=== PATIENT | female | born 1985 | race American Indian/Alaskan Native ===

== ENCOUNTER 2017-07-15 20:02 | Emergency (ER) | payer SELFPAY ==
[2017-07-15 21:47] LABS: Basophils % (Auto) 0.6 % (0.0-1.8); Eosinophils # (Auto) 0.3 K/mm3 (0.0-0.4); Eosinophils % (Auto) 3.7 % (0.0-4.3); Hematocrit 45.1 % (30.3-42.9); Hemoglobin 14.7 gm/dl (10.1-14.3); Lymphocytes # (Auto) 2.7 K/mm3 (1.2-5.4); Lymphocytes % (Auto) 36.6 % (13.4-35.0); Mean Corpuscular HGB Conc 33 % (30-34); Mean Corpuscular Hemoglobin 35 pg (28-32); Mean Corpuscular Volume 106 fl (79-97); Monocytes # (Auto) 0.6 K/mm3 (0.0-0.8); Platelet Count 225 K/mm3 (140-440); Red Blood Count 4.25 M/mm3 (3.65-5.03); Red Cell Distribution Width 11.9 % (13.2-15.2)
[2017-07-15] MEDS ORDERED: NACL 0.9% 1000 ML 1,000 ML IV ONE (22:24)
[2017-07-15 22:36] LABS: Bilirubin,Urine NEG (Negative); Blood,Urine LG (Negative); Color,Urine Red (Yellow); Mucus,Urine 2+ /HPF; Nitrite,Urine NEG (Negative); Urobilinogen,Urine < 2.0 mg/dL (<2.0)
--- NOTE | 2017-07-15 22:36 | Emergency Department Report ---
HPI - General Chief Complaint: Vaginal Bleeding Time Seen by Provider: 07/15/17 22:24 - HPI HPI: Room 19 The patient is a 31-year-old female presented with a chief complaint of vaginal bleeding. The patient states her cycle came on in his usual time approximately 2 days ago however is been heavier than normal. Patient states she didn't using tampons and maxipads and has to change them at least hourly. The patient says she's gone through approximately 40 tampons and maxipads in the past 2 days. Patient states she had episode of dizziness 4 days ago and has had pelvic cramping and a headache. Location: Genitourinary system Duration: 2 days Quality:. Cramping Severity: Moderate Modifying factors: [see above] Context: [see above] Mode of transportation: Unknown ED Past Medical Hx - Past Medical History Previous Medical History?: Yes Additional medical history: ANEMIA - Surgical History Past Surgical History?: No - Family History Family history: no significant - Social History Smoking Status: Former Smoker (none 1 year) Substance Use Type: None (denies illicit drug use) - Medications Home Medications: Home Medications Medication Instructions Recorded Confirmed Last Taken Type HYDROcodone/APAP 5-325 [[place] 1 - 2 each PO Q6HR PRN #14 tablet 02/24/16 Unknown Rx 5/325] Ibuprofen [Motrin 800 MG tab] 800 mg PO Q8HR PRN #20 tablet 02/24/16 Unknown Rx Sulfamethoxazole/Trimethoprim 1 each PO BID #20 tablet 02/24/16 Unknown Rx [Bactrim DS TAB] medroxyPROGESTERone ACETATE 10 mg PO QDAY #10 tablet 07/15/17 Unknown Rx [Provera] Ibuprofen [Motrin 800 MG tab] 800 mg PO Q8HR PRN #20 tablet 07/16/17 Unknown Rx traMADol [Ultram] 50 mg PO Q6HR PRN #14 tablet 07/16/17 Unknown Rx ED Review of Systems ROS: Stated complaint: VAG BLEED Other details as noted in HPI Gastrointestinal: abdominal pain Genitourinary: abnormal menses Neurological: headache Physical Exam - Physical Exam Vital Signs: Vital Signs 07/15/17 20:29 Temperature 97.7 F Pulse Rate 104 H Respiratory 16 Rate Blood Pressure 161/73 O2 Sat by Pulse 100 Oximetry Physical Exam: GENERAL: The patient is well-developed well-nourished female lying on stretcher not appearing to be in acute distress. [] HEENT: Normocephalic. Atraumatic. Extraocular motions are intact. Patient has moist mucous membranes. NECK: Supple. Trachea midline CHEST/LUNGS: Clear to auscultation. There is no respiratory distress noted. HEART/CARDIOVASCULAR: Regular. There is no tachycardia. There is no gallop rub or murmur. ABDOMEN: Abdomen is soft, nontender. Patient has normal bowel sounds. There is no abdominal distention. SKIN: There is no rash. There is no edema. There is no diaphoresis. NEURO: The patient is awake, alert, and oriented. The patient is cooperative. The patient has normal speech MUSCULOSKELETAL: There is no evidence of acute injury. PELVIC: Small amount of dark red blood in the vaginal vault ED Course Vital Signs 07/15/17 20:29 Temperature 97.7 F Pulse Rate 104 H Respiratory 16 Rate Blood Pressure 161/73 O2 Sat by Pulse 100 Oximetry ED Medical Decision Making - Lab Data Result diagrams: 07/15/17 20:40 Laboratory Tests 07/15/17 07/15/17 07/15/17 20:40 20:40 20:40 WBC 7.3 RBC 4.25 Hgb 14.7 H Hct 45.1 H MCV 106 H MCH 35 H MCHC 33 RDW 11.9 L Plt Count 225 Lymph % (Auto) 36.6 H [place] % (Auto) 8.0 H Eos % (Auto) 3.7 Baso % (Auto) 0.6 Lymph # 2.7 [place] # 0.6 Eos # 0.3 Baso # 0.0 Seg Neutrophils % 51.1 Seg Neutrophils # 3.7 HCG, Quant < 2 Urine Color Urine Turbidity Urine pH Ur Specific [place] Urine Protein Urine Glucose (UA) Urine Ketones Urine Blood Urine Nitrite Urine Bilirubin Urine Urobilinogen Ur Leukocyte Esterase Urine WBC (Auto) Urine RBC (Auto) Urine Mucus Blood Type O POSITIVE Antibody Screen Negative 07/15/17 Unknown WBC RBC Hgb Hct MCV MCH MCHC RDW Plt Count Lymph % (Auto) [place] % (Auto) Eos % (Auto) Baso % (Auto) Lymph # [place] # Eos # Baso # Seg Neutrophils % Seg Neutrophils # HCG, Quant Urine Color Red Urine Turbidity Cloudy Urine pH 5.0 Ur Specific [place] 1.031 H Urine Protein 100 mg/dl Urine Glucose (UA) Neg Urine Ketones 20 Urine Blood Lg Urine Nitrite Neg Urine Bilirubin Neg Urine Urobilinogen < 2.0 Ur Leukocyte Esterase Neg Urine WBC (Auto) 7.0 H Urine RBC (Auto) > 182.0 Urine Mucus 2+ Blood Type Antibody Screen - Radiology Data Radiology results: report reviewed (pelvic ultrasound), image reviewed (pelvic ultrasound) FINAL REPORT PROCEDURE: US TRANSVAGINAL TECHNIQUE: Real-time transabdominal sonography in multiple planes of the pelvis was performed. The pelvic structures, especially the ovaries were not optimally visualized. Transvaginal sonography was then performed to better evaluate the structures and/or abnormalities described below with image documentation. CPT 85824 and 49130 HISTORY: menorrhagia COMPARISON: No prior studies are available for comparison. FINDINGS: UTERUS Size: 8.9 x 4.6 x 5.3 cm. Endometrial thickness: 8 mm. Orientation: anteverted. Cervix: Normal. Fibroids/masses: Small suspected fibroid in the left mid myometrium measures 8 x 4 x 8 millimeters. RIGHT Ovary: 3.1 x 2 x 2.5 cm. Appearance: There are few small follicular cysts identified. LEFT Ovary: 3.3 x 1.9 x 2.6 cm. Appearance: There are few small follicular cysts identified. Pelvic fluid: None. Other: None. IMPRESSION: Small fibroid suspected in the left mid myometrium measures up to 8 millimeters. The remainder of the uterine imaging is normal. Both ovaries have normal size. Small follicular cysts identified on each ovary. Transcribed By: [facility] Dictated By: DALY BROCK MD Electronically Authenticated By: DALY BROCK MD Signed Date/Time: 07/15/172011 DD/ 11 TD/TT: 07/15/172011 - Differential Diagnosis menorrhagia, missed , uterine fibroids, ectopic Critical care attestation.: If time is entered above; I have spent that time in minutes in the direct care of this critically ill patient, excluding procedure time. ED Disposition Clinical Impression: Menorrhagia Disposition: [id number] TO HOME OR SELFCARE Is pt being admited?: No Does the pt Need Aspirin: No Condition: Stable Instructions: Menorrhagia (ED) Additional Instructions: Return to the emergency department immediately should you develop worsening symptoms, fever, inability to tolerate food or liquid or any other concerns. Prescriptions: Ibuprofen [Motrin 800 MG tab] 800 mg PO Q8HR PRN #20 tablet PRN Reason: Pain medroxyPROGESTERone ACETATE [Provera] 10 mg PO QDAY #10 tablet traMADol [Ultram] 50 mg PO Q6HR PRN #14 tablet PRN Reason: Pain Referrals: GLADIS AGUILAR MD [Primary Care Provider] - 3-5 Days [facility] [Provider Group] - [facility] Time of Disposition: 00:50
[2017-07-15 22:38] LABS: RBC,Urine > 182.0 /HPF (0.0-6.0)
--- NOTE | 2017-07-16 00:14 | Ultrasound Report ---
FINAL REPORT PROCEDURE: US TRANSVAGINAL TECHNIQUE: Real-time transabdominal sonography in multiple planes of the pelvis was performed. The pelvic structures, especially the ovaries were not optimally visualized. Transvaginal sonography was then performed to better evaluate the structures and/or abnormalities described below with image documentation. CPT 77544 and 46434 HISTORY: menorrhagia COMPARISON: No prior studies are available for comparison. FINDINGS: UTERUS Size: 8.9 x 4.6 x 5.3 cm. Endometrial thickness: 8 mm. Orientation: anteverted. Cervix: Normal. Fibroids/masses: Small suspected fibroid in the left mid myometrium measures 8 x 4 x 8 millimeters. RIGHT Ovary: 3.1 x 2 x 2.5 cm. Appearance: There are few small follicular cysts identified. LEFT Ovary: 3.3 x 1.9 x 2.6 cm. Appearance: There are few small follicular cysts identified. Pelvic fluid: None. Other: None. IMPRESSION: Small fibroid suspected in the left mid myometrium measures up to 8 millimeters. The remainder of the uterine imaging is normal. Both ovaries have normal size. Small follicular cysts identified on each ovary.
--- NOTE | 2017-07-16 00:17 | Ultrasound Report ---
FINAL REPORT PROCEDURE: Ultrasound pelvis transabdominal and transvaginal TECHNIQUE: Real-time transabdominal sonography in multiple planes of the pelvis was performed. The pelvic structures, especially the ovaries were not optimally visualized. Transvaginal sonography was then performed to better evaluate the structures and/or abnormalities described below with image documentation. CPT 72663 and 40804 HISTORY: menorrhagia COMPARISON: No prior studies are available for comparison. FINDINGS: UTERUS Size: 8.9 x 4.6 x 5.3 cm. Endometrial thickness: 8 mm. Orientation: anteverted. Cervix: Normal. Fibroids/masses: Small suspected fibroid in the left mid myometrium measures 8 x 4 x 8 millimeters. RIGHT Ovary: 3.1 x 2 x 2.5 cm. Appearance: There are few small follicular cysts identified. LEFT Ovary: 3.3 x 1.9 x 2.6 cm. Appearance: There are few small follicular cysts identified. Pelvic fluid: None. Other: None. IMPRESSION: Small fibroid suspected in the left mid myometrium measures up to 8 millimeters. The remainder of the uterine imaging is normal. Both ovaries have normal size. Small follicular cysts identified on each ovary.
[2017-07-16 01:21] VITALS: BP 122/77
== END 2017-07-16 02:00 | disposition home or self-care (01) ==
LOC: ED 20:02
DX: N92.0 Excessive and frequent menstruation with regular cycle (principal); Z86.2 Personal history of diseases of the blood and blood-forming organs and certain disorders involving the immune mechanism; Z87.891 Personal history of nicotine dependence
CPT/HCPCS: 36415; 76830; 76856; 81001; 84702; 85025; 86850; 86900; 86901; 96360; 99284; J7030